=== PATIENT | male | born 1985 | race Caucasian/White ===

== ENCOUNTER 2022-12-16 21:29 | Emergency (ER) | payer OTHER, SELFPAY ==
[2022-12-16 21:33] VITALS: BP 157/93; PULSE 92; RESP 19; TEMP 37.1; O2SAT 100
--- NOTE | 2022-12-16 22:12 | PC.NURSE ---
patient states he feels better and left from triage
== END 2022-12-16 22:27 | disposition left against medical advice (07) ==
DX: I10 Essential (primary) hypertension (principal)
CPT/HCPCS: 99199

== ENCOUNTER 2022-12-19 11:15 | Emergency (ER) | payer OTHER, SELFPAY ==
--- NOTE | ~2022-12-19 | XR_ITS ---
Clinical Indication: Chest discomfort PA and lateral view of the chest: Comparison: 02/18/2019 Findings: The lungs are clear, without evidence of focal consolidation or pleural effusion. Cardiome diastinal silhouette is within normal limits. Bones and soft tissues are unremarkable. Impression: Normal chest. Reviewed, dictated and finalized at location . Impression: Normal chest.
[2022-12-19 11:30] VITALS: BP 137/89; PULSE 72; RESP 16; TEMP 36.8; O2SAT 100
--- NOTE | 2022-12-19 11:35 | ECG_ITS ---
Measurements Intervals [place] Rate: 61 P: 63 LA: 168 QRS: 2 QRSD: 98 T: 32 QT: 392 QTc: 396 Interpretive Statements ECTOPIC ATRIAL RHYTHM CHANGES TO SINUS RHYTHM WITH MARKED SINUS ARRHYTHMIA EARLY PRECORDIAL R/S TRANSITION ABNORMAL ECG COMPARED TO ECG 02/18/2019 13:50:40 ECTOPIC ATRIAL RHYTHM CHANGES TO SINUS RHYTHM NOW PRESENT Electronically Signed On 12-19-2022 20:30:12 CDT by Francisco Javier Jones D.O.
--- NOTE | 2022-12-19 12:44 | ED.GENADULT ---
HPI - General Adult General Chief complaint: Unspecified Stated complaint: shakey Time Seen by Provider: 12/19/22 11:58 Source: patient and RN notes reviewed Mode of arrival: ambulatory Limitations: no limitations History of Present Illness HPI narrative: This is a 37 year old male with history of depression and anxiety who presents for evaluation of shakiness. Patient states he was at [facility] when he felt shaky and tingling. He reports feeling tingling in his leg, his hands and then all over his body. He states he felt something weird in his chest pain. He felt like he was going to and he also reports feeling lightheaded. He told staff at [facility] to call 911. His symptoms have resolved. He states he had a similar occurrence 2 days ago but it resolves so he left ER. Related Data Allergies Allergy/AdvReac Type Severity Reaction Status Date / Time No Known Allergies Allergy Mild Verified 12/19/22 11:59 PMFSH Past Medical History Medical History Anxiety Depression Surgical History Surgical History (Updated 12/19/22 @ 12:45 by Yessica López MD) H/O hand surgery Social History Social History (Updated 12/19/22 @ 12:45 by Yessica López MD) Smoking packs per day: 1 Smoking cigarettes per day: 20.0 Smoking status: Current every day smoker Alcohol intake: current Substance use type: marijuana Last use: nightly Gender identity (if verbalized by the patient): Male Exam Narrative: GENERAL: Well-appearing, well-nourished, and in no acute distress. HEAD: Normocephalic, atraumatic EYES: PERRLA and EOMI, conjunctiva clear without discharge EARS: TM's clear bilaterally without erythema or dullness NOSE: Nares clear, no rhinorrhea or epistaxis THROAT:Mucous membranes moist, Oropharynx normal without erythema, exudate, peritonsillar swelling or fluctuance NECK: Supple, without lymphadenopathy or mass RESPIRATORY: No respiratory distress, Airway patent, Respirations non-labored, Clear to auscultation without rales, rhonchi or wheeze HEART: Regular rate and rhythm. No murmur heard. Normal peripheral pulses. ABDOMEN: Soft, nontender, nondistended, normal active bowel sounds. No masses. No rebound or guarding, No organomegaly. EXTREMITIES: No edema, normal strength with full range of motion. SKIN: Warm, dry, normal color without rash NEURO: Alert and oriented x3. CN 2-12 grossly intact. No focal deficits. PSYCH: Normal mood and affect. Course Reevaluation(s) Reevaluation #1: PAtient's symptoms seem to be related to panic attack. He was given Xanax 0.25 mg in ER. He states he is ready to go now. He has appointment with PCP next weeks. labs unremarkable. EKG unremarkable. Date: 12/19/22 Time: 14:05 Vital Signs Vital signs: Vital Signs Temperature 98.3 F 12/19/22 11:30 Pulse Rate 72 12/19/22 11:30 Respiratory Rate 16 12/19/22 11:30 Blood Pressure 137/89 12/19/22 11:30 Pulse Oximetry 100 12/19/22 11:30 Oxygen Delivery Room Air 12/19/22 11:30 Temperature 98.3 F 12/19/22 11:30 Pulse Rate 72 12/19/22 11:30 Respiratory Rate 16 12/19/22 11:30 Blood Pressure 137/89 12/19/22 11:30 Pulse Oximetry 100 12/19/22 11:30 Oxygen Delivery Room Air 12/19/22 11:30 Medical Decision Making [facility] Narrative Medical decision making narrative: labs, EKG , chest xray ordered, no significant findings. PAtient seemed to have anxiety attack in ER for given xanax. He has follow up appointment with PCP next week for evaluation of anxiety Differential Diagnosis Differential Diagnosis: anxiety, paresthesia, PE(unlikely- PERC negative) UTI, intoxication, drug reaction Vital Signs Vital Signs: Vital Signs Temperature 98.3 F 12/19/22 11:30 Pulse Rate 72 12/19/22 11:30 Respiratory Rate 16 12/19/22 11:30 Blood Pressure 137/89 12/19/22 11:30 Pulse Oximetry 100 12/19/22 11:30 Oxygen Delivery Room
[2022-12-19 12:47] LABS: Basophils Absolute Auto 0.1 K/mm3 (0.0-0.1); Basophils Percent Auto 0.8 % (0.2-1.2); Eosinophils Absolute Auto 0.1 K/mm3 (0-0.3); Hematocrit 44.8 % (42.0-52.0); Hemoglobin 15.7 g/dL (14.0-18.0); Immature Granulocyte Absolute 0.03 K/mm3 (0.00-0.031); Immature Granulocyte Percent A 0.5 % (0-0.5); Lymphocytes Percent Auto 22.2 % (18.3-44.2); Mean Corpuscular Hemoglobin 31.5 pg (26-34); Monocytes Absolute Auto 0.5 K/mm3 (0.1-0.6); Monocytes Percent Auto 8.4 % (2.6-8.5); Neutrophils Absolute Auto 4.2 K/mm3 (1.3-6.7); Neutrophils Percent Auto 67.1 % (45.5-73.1); Platelet Count Result 252 k/mm3 (150-375); Red Blood Count 4.98 M/mm3 (4.6-6.20); Red Cell Distribution Width 11.5 % (11.5-14.5); White Blood Count 6.3 K/mm3 (4.5-10.0)
[2022-12-19 13:01] LABS: Barbiturate Screen Urine Negative (Negative); Benzodiazepines Screen Urine Negative (Negative)
[2022-12-19 13:06] LABS: Amphetamine Screen Urine Negative (Negative); Cannabinoid Screen Urine Negative (Negative); Cocaine Screen Urine Negative (Negative); Methadone Screen Urine Negative (Negative); Opiate Screen Urine Negative (Negative); Phencyclidine Screen Urine Negative (Negative)
[2022-12-19 13:07] LABS: Alanine Aminotransferase 24 U/L (6-50); Albumin Level 4.9 g/dL (3.5-5.1); Alkaline Phosphatase 49 U/L (38-126); Anion Gap 8 mmol/L (8-16); Aspartate Amino Transferase 24 U/L (17-59); Bilirubin,Total 1.7 mg/dL (0.2-1.3); Blood Urea Nitrogen 13 mg/dL (9-20); Calcium 9.3 mg/dL (8.4-10.2); Carbon Dioxide 30 mmol/L (22-30); Chloride 101 mmol/L (98-107); Estimated CRCL calculation 94 ml/min; Estimated Glomerular Filt Rate > 60; Glucose 106 mg/dL (65-110); Magnesium 2.2 mg/dL (1.6-2.3); Potassium 4.1 mmol/L (3.4-5.0); Sodium 139 mmol/L (137-145)
[2022-12-19 13:14] LABS: Ethanol < 10 mg/dL (<10)
[2022-12-19 13:18] LABS: Troponin I < 0.012 ng/mL (0.000-0.034)
[2022-12-19] MEDS: ALPRAZolam (*CRX) 0.25 MG TABLET PO (13:32)
== END 2022-12-19 14:12 | disposition home or self-care (01) ==
PROVIDERS: Emergency Provider General Practice
DX: R20.2 Paresthesia of skin (principal); F41.9 Anxiety disorder, unspecified; F32.A Depression, unspecified; F17.210 Nicotine dependence, cigarettes, uncomplicated; F12.90 Cannabis use, unspecified, uncomplicated
CPT/HCPCS: 36415; 71046; 80053; 80307; 83735; 84484; 85025; 93005; 99284; A9270